=== PATIENT | female | born 1990 | race Caucasian/White ===

== ENCOUNTER → 2016-05-29 | Outpatient (CLI) | payer MEDICAID ==
--- NOTE | 2016-05-29 10:41 | RADRPT ---
PROCEDURE: US OB. CLINICAL INDICATION: Uncertain size and dates. TECHNIQUE: Multiple sonographic images of the uterus were obtained. The images were revi ewed on a PACS workstation. COMPARISON: No prior studies are available for comparison. FINDINGS: There is a single live intrauterine gestation. heart rate is 150 beats per minute. Measurements were made in order to determine age. The results are as follows: BPD = 5.98 cm. HC = 22.56 cm. AC = 21.35 cm. FL = 4.04 cm. Estimated weight is 719 +/- 108 grams. Menstrual age by ultrasound dates is 24 weeks 3 days. The estimated date of delivery is 09/15/2016. Maximum vertical pocket of amniotic fluid is 6.9 cm. Position is cephalic and placenta is anterior grade 1. There is no evidence for an abruption or plac enta previa. IMPRESSION: 1. Single live intrauterine gestation of 24 weeks 3 days menstrual age by ultrasound dates. 2. The estimated date of delivery is 09/15/2016. RPTAT: QQ .Domenic Montes MD, Date Time Electronically viewed and signed by .Domenic Montes MD, on 05/29/2016 10:40 .R/
== END | disposition home or self-care (01) ==
LOC: U/S 09:18
PROVIDERS: ATTEND Obstetrics & Gynecology
DX: O26.842 Uterine size-date discrepancy, second trimester (principal); Z3A.00 Weeks of gestation of pregnancy not specified
CPT/HCPCS: 76805

== ENCOUNTER 2016-08-09 11:16 | Outpatient (CLI) | payer MEDICAID ==
[~2016-08-09] VITALS: Ht 157.5 cm; Wt 76.9 kg
[2016-08-09 11:22] VITALS: Ht 157.5 cm; Wt 76.9 kg
--- NOTE | 2016-08-09 12:25 | RADRPT ---
PROCEDURE: US OB biophysical profile. CLINICAL INDICATION: decreased movements TECHNIQUE: Multiple sonographic images of the pelvis were obtained. The images were reviewed on a PACS workstation. COMPARISON: 05/29/2016 FINDINGS: There is a single viable intrauterine gestation. Cardiac activity is present with 150 beats per min [place]. There is a vertex presentation. The placenta is anterior. There is no evidence of placental abruption. There is a normal amount of amniotic fluid with an KASSANDRA = 15.5 cm. Biophysical profile: movement 2/2 tone 2/2. breathing 2/2 KASSANDRA 2/2 Total 12/08 RPTAT: AA . IMPRESSION: Normal biophysical profile. . .Duong Guthrie MD, MD Date Time Electronically viewed and signed by .Duong Guthrie MD, MD on 08/09/2016 12:24 .S/
--- NOTE | 2016-09-30 09:09 | QN ---
Documentation Comment Dx. iup 38 weeks MEHREEN Alejandre MD September 30, 2016 09:09
== END 2016-08-09 13:25 | disposition home or self-care (01) ==
LOC: OBT 11:16 → L-D 11:16 → OBT 13:25
PROVIDERS: ATTEND Obstetrics & Gynecology
DX: O36.8130 Decreased fetal movements, third trimester, not applicable or unspecified (principal); Z3A.38 38 weeks gestation of pregnancy
CPT/HCPCS: 76818; Z7500; G0463

== ENCOUNTER 2016-08-29 09:00 | Inpatient (IN) | payer MEDICAID ==
[~2016-08-29] VITALS: Ht 154.9 cm; Wt 77.3 kg
[2016-08-29] MEDS ORDERED: METHYLERGONOVINE 0.2 MG INJ IM PRN ×2 (10:00→15:30)
[2016-08-29] MEDS ORDERED: MISOPROSTOL 200 MCG TAB PR PRN ×2 (10:00→15:30)
[2016-08-29] MEDS ORDERED: OXYTOCIN 30 UNITS/LR 500 ML IV PRN ×2 (10:00→15:30)
[2016-08-29] MEDS ORDERED: CARBOPROST 250 MCG INJ IM PRN ×2 (10:00→15:30)
[2016-08-29] MEDS ORDERED: OXYTOCIN 30 UNITS/LR 500 ML IV SCH (10:00)
[2016-08-29 10:56] LABS: ADD SCAN DIFF NO
[2016-08-29 10:58] LABS: BASOPHILS % 0.2 % (0.0-2.0); EOSINOPHILS % 0.2 % (0.0-7.0); HEMATOCRIT 31.6 % (37.0-47.0); HEMOGLOBIN 10.7 g/dl (12.0-16.0); LYMPHOCYTES # 2.2 10^3/ul (0.8-2.9); MEAN CORPUSCULAR HGB CONC 33.9 g/dl (32.0-37.0); MEAN CORPUSCULAR VOLUME 85.6 fl (82.0-101.0); MEAN PLATELET VOLUME 11.5 fl (7.4-10.4); MONOCYTE # 0.6 10^3/ul (0.3-0.9); MONOCYTES % 6.8 % (0.0-11.0); NEUTROPHIL # 5.9 10^3/ul (1.6-7.5); NEUTROPHILS % 67.2 % (39.0-77.0); PLATELET COUNT 270 10^3/UL (140-415); RED BLOOD COUNT 3.69 10^6/ul (4.20-5.40); RED CELL DISTRIBUTION WIDTH 16.1 % (11.5-14.5); WHITE BLOOD COUNT 8.8 10^3/ul (4.8-10.8)
[2016-08-29] MEDS ORDERED: LACTATED RINGER'S 1,000 ML IV ONE ×2 (11:00→11:30)
[2016-08-29 11:23] LABS: INR 0.94; PROTIME 12.6 Sec (12.2-14.2)
[2016-08-29 11:24] LABS: PARTIAL THROMBOPLASTIN TIME 31.4 Sec (25.0-35.0)
[2016-08-29] MEDS ORDERED: FENTAnyl 50 MCG/ML VIAL ONE (11:32)
[2016-08-29] MEDS ORDERED: morphine SULFATE/PF (10 MG/10 ML) INJ ONE (11:32)
[2016-08-29 11:33] VITALS: Ht 154.9 cm; Wt 77.3 kg
[2016-08-29 11:34] VITALS: BP 121/73; PULSE 93; RESP 18
[2016-08-29] MEDS: CEFAZOLIN 2 GM/50 ML (PMX) 50 ML IV SCH ×2 (11:48→13:44)
[2016-08-29] MEDS ORDERED: PHENYLephrine (100 MCG/ML) 5ML SYG ONE (11:51)
[2016-08-29] MEDS ORDERED: DIPHENHYDRAMINE 50 MG INJ IV PRN (12:00)
[2016-08-29] MEDS ORDERED: ZOLPIDEM 5 MG TAB PO PRN (12:00)
[2016-08-29] MEDS ORDERED: HYDROmorphONE 1 MG/ML SYG IV PRN ×2 (12:00)
[2016-08-29] MEDS ORDERED: NALOXONE (0.4 MG/ML) INJ IV PRN (12:00)
[2016-08-29] MEDS ORDERED: ONDANSETRON 4 MG INJ IV PRN (12:00)
[2016-08-29] MEDS ORDERED: DEXAMETHASONE 4 MG/ML 1 ML INJ ONE (12:06)
--- NOTE | 2016-08-29 14:10 | HP ---
Date/Time of Note Date/Time of Note DATE: 08/29/16 TIME: 13:57 OB - History Hx of Present Free Text/Dictation 25 years old female T3 Pt/0 02 admitted to [facility] at 41 weeks and 1 with a history of previous request for lateral tubal ligation at the time of her section being prepared for the above-mentioned surgery This patient has been under the care of the [facility] and her was not complicated with gestational diabetes -induced hypertension or any other serious medical or surgical condition Past history appendectomy 2007, 2 previous section Allergies denies allergy to any known medication Social habit denies a smoking or drinking Family history unremarkable Review of systems within normal Physical examination 5 feet 1 178 pounds Head ears nose and throat negative Neck supple no thyromegaly Lungs clear to P&A Heart normal sinus rhythm no murmur Abdomen fundal height 37 cm from symphysis pubis to the height of the fundus heart rate category 1 Pelvic exam deferred Extremities no edema no varicosities Impression Intrauterine at 40 weeks and 1 day history of 3 previous section request for bilateral tubal ligation. Patient is aware of the complication of the surgery including bowel bladder injury infection hemorrhage and hematoma, also she was counseled regarding failure rate of tubal ligation increased risk of ectopic future failure to conceive. Estimated Due Date: Aug 21, 2016 : 6 Para: 3 Spontaneous : 2 Ultrasounds: Normal mid trimester US Obstetrical Complications: None Medical Complications: None Past Family/Social History * Past Medical, Surgical, Family and Obstetric Histories reviewed from chart. Rubella: immune RPR/VDRL: Negative GBS Status: Negative HBsAG: Negative OB Admission Exam Vital Signs Vital Signs Vital Signs Date Time Temp Pulse Resp B/P Pulse Ox O2 Delivery O2 Flow Rate FiO2 08/29/16 11:34 98.3 93 18 121/73 Room Air Physical Exam HEENT: WNL Heart: Rhythm Normal Lungs: Clear, Equal Abdomen: WNL Extremities: Normal Reflexes: Normal Cervical Dilatation: None Effacement: 0% Station: -2 Membranes: Intact Heart Rate: 130's Accelerations: Accelerations Present Decelerations: No Decelerations Varibility: Absent Last 72 hours Lab Results CBC & BMP 08/29/16 10:10 OB Assessment/Plan Reason for admission: other (Repeat bilateral tubal ligation) DEYA RAMOS MD Aug 29, 2016 14:08
--- NOTE | 2016-08-29 14:28 | OPR ---
DATE OF OPERATION: 08/29/2016 PREOPERATIVE DIAGNOSES: 1. Intrauterine at 41 weeks and 1 day gestation. 2. History of previous section. 3. Request for voluntary sterilization, bilateral tubal ligation at the time of section. POSTOPERATIVE DIAGNOSES: 1. Intrauterine at 41 weeks and 1 day gestation. 2. History of previous section. 3. Request for voluntary sterilization, bilateral tubal ligation at the time of section. PROCEDURE PERFORMED: 1. Repeat transverse low cervical section. 2. Bilateral tubal ligation, Tere method. SURGEON: Deya Barnard MD TURRET LATHE SET UP OPERATOR: Shena Monroe MD ANESTHESIA: Spinal. ANESTHESIOLOGIST: Dr. Jefferson FINDINGS: Live baby boy with 9 and 9. Baby weighed 3316 grams. DETAILS OF THE PROCEDURE: Under satisfactory spinal anesthesia, the patient was prepped and draped and placed in supine position, tilted to the left. Pfannenstiel incision was made. Old scar was re moved. Incision carried through the subcutaneous tissue. Bleeders brought under control with elect rocautery. Fascia incised to the length of the incision. Rectus muscles divided in midline, perito neum exposed. Upon entry into the abdominal cavity, there were some filmy adhesions between the jannette bertin and anterior abdominal wall, which were taken down by sharp and blunt dissection. Lower segment of the uterus, which was extremely thinned out to the thickness of 1 to 2 mm, cleared from the adhe sions. Bladder flap was developed. Transverse incision was made in the lower segment of the uterus . Amniotic sac ruptured. Clear amniotic fluid noted. Live baby boy was delivered from unengaged v ertex. Nasal oropharyngeal suction was performed. Baby handed to the team for immediate a ttention. The patient received 20 units of Pitocin. Placenta delivered manually intact. Uterine c avity cleaned with wet sponge and uterus closed in 2 layers using Monocryl #1 in continuous fashion. Bilateral tubal ligation performed by identifying the right fallopian tube. The ampullar section of the tube was grasped by a [place]. A loop was made. Suture material used #0 plain catgut was rein forced with the same suture material. Top of the loop 3/4-inch was excised. The cut end of the tub e was cauterized and the specimen submitted for the pathology. The same procedure performed for the opposite side. Peritoneal cavity irrigated with warm saline. Sponge, needle and instrument reported to be correct. Abdominal peritoneum closed with 2-0 chromic catgut continuously. Rectus muscle approximated with a few interrupted 2-0 chromic catgut. Fascia closed with #1 PDS in a continuous fashion. Subcutan eous tissue approximated with 2-0 chromic catgut. The skin closed with antonia. Estimated blood lo ss 600 mL. Urine bag contained 300 mL of clear urine. The patient tolerated procedure well, transf erred to recovery room in a good condition. Dictated By: DEYA MAGALLANES/NICHOLE Conf#: [id number] DID#: [id number]
[2016-08-29] MEDS: KETOROLAC 30 MG INJ IV PRN (14:41)
[2016-08-29] MEDS ORDERED: OXYCODONE/ACETAMINOPHEN (5/325) TAB PO PRN (15:30)
[2016-08-29] MEDS ORDERED: LANOLIN 7 GM TUBE TOP PRN (15:30)
[2016-08-29] MEDS ORDERED: ACETAMINOPHEN/CODEINE #3 TAB PO PRN ×2 (15:30)
[2016-08-29] MEDS ORDERED: CEFAZOLIN 1 GM/50 ML (PMX) 50 ML IVPB SCH (15:30)
[2016-08-29 16:30] VITALS: BP 125/68; PULSE 79; RESP 19
[2016-08-29] MEDS: OXYTOCIN 30 UNITS/LR 500 ML IV SCH ×2 (16:51→21:05)
[2016-08-29 17:01] VITALS: BP 131/81; PULSE 79; RESP 17
[2016-08-29 18:01] VITALS: BP 112/68; PULSE 75; RESP 18
[2016-08-29 19:45] VITALS: BP 115/66; PULSE 78; RESP 18
[2016-08-30] VITALS (7 sets, daily range): BP systolic 90–106; BP diastolic 52–63; PULSE 70–81; RESP 16–18
[2016-08-30] MEDS: OXYTOCIN 30 UNITS/LR 500 ML IV SCH ×5 (01:17→15:04)
[2016-08-30] MEDS ORDERED: LACTATED RINGER'S 1,000 ML IV ONE (05:30)
[2016-08-30] MEDS: KETOROLAC 30 MG INJ IV PRN ×2 (05:30→11:49)
[2016-08-30 07:38] LABS: ADD SCAN DIFF NO
[2016-08-30 07:39] LABS: BASOPHILS % 0.2 % (0.0-2.0); EOSINOPHILS % 0.1 % (0.0-7.0); HEMATOCRIT 28.3 % (37.0-47.0); HEMOGLOBIN 9.5 g/dl (12.0-16.0); LYMPHOCYTES # 2.2 10^3/ul (0.8-2.9); LYMPHOCYTES % 18.2 % (15.0-51.0); MEAN CORPUSCULAR HEMOGLOBIN 28.4 pg (29.0-33.0); MEAN CORPUSCULAR HGB CONC 33.6 g/dl (32.0-37.0); MEAN CORPUSCULAR VOLUME 84.7 fl (82.0-101.0); MEAN PLATELET VOLUME 11.8 fl (7.4-10.4); MONOCYTE # 0.9 10^3/ul (0.3-0.9); MONOCYTES % 6.9 % (0.0-11.0); NEUTROPHIL # 9.1 10^3/ul (1.6-7.5); PLATELET COUNT 263 10^3/UL (140-415); RED BLOOD COUNT 3.34 10^6/ul (4.20-5.40); RED CELL DISTRIBUTION WIDTH 15.8 % (11.5-14.5); WHITE BLOOD COUNT 12.3 10^3/ul (4.8-10.8)
[2016-08-30] MEDS: SENNA/DOCUSATE NA (8.6MG/50MG) TAB PO SCH ×2 (09:05→20:35)
[2016-08-30] MEDS: IBUPROFEN 600 MG TAB PO SCH ×3 (11:50→23:37)
[2016-08-30] MEDS: OXYCODONE/ACETAMINOPHEN (5/325) TAB PO PRN ×2 (14:22→20:35)
--- NOTE | 2016-08-30 15:29 | PN ---
Date/Time of Note Date/Time of Note DATE: 08/30/16 TIME: 15:28 OB Subjective Subjective Subjective Post day 1 Afebrile vital signs stable abdomen soft incision dry bowel sounds present lochia moderate extremity normal Laboratory Tests Test 08/30/16 06:21 White Blood Count 12.310^3/ul Red Blood Count 3.3410^6/ul Hemoglobin 9.5g/dl Hematocrit 28.3% Mean Corpuscular Volume 84.7fl Mean Corpuscular Hemoglobin 28.4pg Mean Corpuscular Hemoglobin Concent 33.6g/dl Red Cell Distribution Width 15.8% Platelet Count 34538^3/UL Mean Platelet Volume 11.8fl Neutrophils % 74.0% Lymphocytes % 18.2% Monocytes % 6.9% Eosinophils % 0.1% Basophils % 0.2% Nucleated Red Blood Cells % 0.0/100WBC Neutrophils # 9.110^3/ul Lymphocytes # 2.210^3/ul Monocytes # 0.910^3/ul Eosinophils # 0.010^3/ul Basophils # 0.010^3/ul Nucleated Red Blood Cells # 0.010^3/ul Current Medications Medications (Trade) Dose Ordered Sig/Genevieve Route PRN Reason Start Time Stop Time Status Last Admin Dose Admin Cefazolin Sodium/ Dextrose 50 ml @ 100 mls/hr ONCE IV 08/29/16 10:00 08/29/16 15:08 DC 08/29/16 11:48 Oxytocin/Lactated Ringer's 500 ml @ 125 mls/hr ONCE IV 08/29/16 10:00 08/29/16 15:08 DC Oxytocin/Lactated Ringer's 500 ml @ 0 mls/hr ONCE PRN IV For Hemorrhage Management 08/29/16 10:00 08/29/16 15:08 DC Methylergonovine Maleate (Methergine) 0.2 mg ONCE PRN IM VAGINAL BLEEDING 08/29/16 10:00 08/29/16 15:09 DC Carboprost Tromethamine (Hemabate) 250 mcg ONCE PRN IM VAGINAL BLEEDING 08/29/16 10:00 08/29/16 15:09 DC Misoprostol 1000 mcg 1,000 mcg ONCE PRN NM VAGINAL BLEEDING 08/29/16 10:00 08/29/16 15:09 DC Lactated Ringer's 1,000 ml @ 1,000 mls/hr Q1H ONCE IV 08/29/16 11:00 08/29/16 11:59 DC 08/29/16 10:51 Lactated Ringer's (Lr) 1,000 ml @ 1,000 mls/hr Q1H ONCE IV 08/29/16 11:30 08/29/16 12:29 DC 08/29/16 12:00 Morphine Sulfate (Duramorph) 10 mg STK-MED ONCE .ROUTE 08/29/16 11:32 08/29/16 11:33 DC Fentanyl (Sublimaze) 100 mcg STK-MED ONCE .ROUTE 08/29/16 11:32 08/29/16 11:33 DC Naloxone HCl (Narcan) 0.1 mg Q2M PRN IV FOR RESP RATE 8 OR LESS 08/29/16 12:00 08/29/16 15:09 DC Ketorolac Tromethamine (Toradol) 30 mg Q6H PRN IV PAIN 08/29/16 12:00 08/30/16 11:59 DC 08/30/16 11:49 Hydromorphone HCl (Dilaudid) 0.2 mg Q3H PRN IV PAIN LEVEL 1-5 08/29/16 12:00 08/30/16 11:59 DC Hydromorphone HCl (Dilaudid) 0.4 mg Q3H PRN IV PAIN LEVEL 6-10 08/29/16 12:00 08/30/16 11:59 DC Diphenhydramine HCl (Benadryl) 25 mg Q6H PRN IV ITCHING 08/29/16 12:00 08/30/16 11:59 DC Ondansetron HCl (Zofran Inj) 4 mg Q6H PRN IV NAUSEA AND/OR VOMITING 08/29/16 12:00 08/30/16 11:59 DC Zolpidem Tartrate (Ambien) 5 mg HS MAY REPEAT X 1 PRN PO INSOMNIA 08/29/16 12:00 08/30/16 11:59 DC Miscellaneous Information (* Miscellaneous Pharmacy Order) Duramorph: .2 mg Spi... GIVEN XX 08/29/16 12:00 08/29/16 15:09 DC Phenylephrine HCl (Avtar-Synephrine Inj Syg) 500 mcg STK-MED ONCE .ROUTE 08/29/16 11:51 08/29/16 11:52 DC Dexamethasone (Decadron) 4 mg STK-MED ONCE .ROUTE 08/29/16 12:06 08/29/16 12:07 DC Acetaminophen/ Codeine Phosphate (Tylenol No.3) 1 tab Q4H PRN PO PAIN LEVEL 4-6 08/29/16 15:30 Acetaminophen/ Codeine Phosphate (Tylenol No.3) 2 tab Q4H PRN PO PAIN LEVEL 7-10 08/29/16 15:30 Oxycodone/ Acetaminophen (Percocet (5/ 325)) 1 tab Q4H PRN PO PAIN LEVEL 4-6 08/29/16 15:30 08/30/16 14:22 Oxycodone/ Acetaminophen (Percocet (5/ 325)) 2 tab Q4H PRN PO PAIN LEVEL 7-10 08/29/16 15:30 Ibuprofen (Motrin) 600 mg Q6 PO 08/30/16 12:00 Simethicone (Mylicon) 160 mg Q8H PRN PO DISTENSION/GAS/BLOATING 08/29/16 15:30 Senna/Docusate Sodium (Senokot-S) 1 tab BID PO 08/30/16 09:00 08/30/16 09:05 Lanolin (Fyr-R-Kqpyjl) 1 applic BEDSIDE MEDICATION PRN TOP BEDSIDE FOR ARIELLE TO NIPPLES 08/29/16 15:30 Diphtheria/ Tetanus/Acell Pertussis 0.5 ml 0.5 ml ONCE ONCE IM* 09/01/16 09:00 09/01/16 09:01 Oxytocin/Lactated Ringer's 500 ml @ 0 mls/hr ONCE PRN IV For Hemorrhage Management 08/29/16 15:30 Methylergonovine Maleate (Methergine) 0.2 mg ONCE PRN IM VAGINAL BLEEDING 08/29/16 15:30 Carboprost Tromethamine (Hemabate) 250 mcg ONCE PRN IM VAGINAL BLEEDING 08/29/16 15:30 Misoprostol 1000 mcg 1,000 mcg ONCE PRN NM VAGINAL BLEEDING 08/29/16 15:30 Cefazolin Sodium 50 ml @ 100 mls/hr ONCE IVPB 08/29/16 15:30 08/29/16 15:59 DC 08/29/16 16:50 Oxytocin/Lactated Ringer's 500 ml @ 125 mls/hr Q4H IV 08/29/16 15:04 08/30/16 01:17 Lactated Ringer's (Lr) 1,000 ml @ 1,000 mls/hr Q1H ONCE IV 08/30/16 05:30 08/30/16 06:29 DC 08/30/16 05:30 DEYA RAMOS MD Aug 30, 2016 15:29
[2016-08-31 04:00] VITALS: BP 90/82; PULSE 71; RESP 16
[2016-08-31] MEDS: OXYCODONE/ACETAMINOPHEN (5/325) TAB PO PRN ×2 (04:18→16:23)
[2016-08-31] MEDS: IBUPROFEN 600 MG TAB PO SCH ×4 (05:41→23:58)
[2016-08-31 07:51] VITALS: BP 101/58; PULSE 81; RESP 18
[2016-08-31] MEDS: SENNA/DOCUSATE NA (8.6MG/50MG) TAB PO SCH ×2 (08:08→20:35)
--- NOTE | 2016-08-31 09:45 | PN ---
Date/Time of Note Date/Time of Note DATE: 08/31/16 TIME: 09:44 OB Subjective Subjective Subjective Post day 1 Afebrile vital signs are stable abdomen soft incision dry bowel sounds. Extremity normal lochia moderate ambulation recommended diet advanced as tolerated DEYA RAMOS MD August 31, 2016 09:45
[2016-08-31 16:00] VITALS: BP 119/65; PULSE 97; RESP 18
[2016-08-31 20:15] VITALS: BP 112/63; PULSE 83; RESP 17
[2016-09-01] VITALS: BP 107/58; PULSE 77; RESP 18
[2016-09-01] MEDS: OXYCODONE/ACETAMINOPHEN (5/325) TAB PO PRN (03:10)
[2016-09-01 03:30] VITALS: BP 99/54; PULSE 75; RESP 18
[2016-09-01] MEDS: IBUPROFEN 600 MG TAB PO SCH ×2 (05:31→11:55)
[2016-09-01 08:30] VITALS: BP 103/63; PULSE 88; RESP 16
[2016-09-01] MEDS ORDERED: DIPHTH/TET/ACEL PERTUSS (ADULT) 0.5 ML VIAL IM* ONE (09:00)
[2016-09-01] MEDS: SENNA/DOCUSATE NA (8.6MG/50MG) TAB PO SCH (09:37)
--- NOTE | 2016-09-01 10:06 | PD.PPDC ---
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
--- NOTE | 2016-09-01 10:10 | DS ---
Date/Time of Note Date/Time of Note DATE: 09/01/16 TIME: 10:08 Discharge Summary Admission/Discharge Info Admit Date/Time Aug 29, 2016 at 09:39 Discharge Date/Time September 01, 2016 at 10 AM Final Diagnosis bilateral tubal ligation Patient Condition: Good Procedures Repeat bilateral tubal ligation Hx of Present Illness 40 weeks 1 day history of previous request for tubal ligation Hospital Course Uneventful satisfactory recovery Home Meds No Active Prescriptions or Reported Meds Follow-up Plan Appointment clinic in 4 days for post follow-up and removal of antonia DEYA RAMOS MD September 01, 2016 10:10
[2016-09-01] MEDS ORDERED: NA PHOSPHATE/BIPHOS 133 ML ENEMA PR ONE (10:30)
== END 2016-09-01 13:58 | disposition home or self-care (01) | DRG 766 ==
LOC: L-D 09:39 → PP1 15:44
PROVIDERS: ADMIT Obstetrics & Gynecology; ATTEND Obstetrics & Gynecology
PROC: 0UL70ZZ Occlusion of Bilateral Fallopian Tubes, Open Approach (ICD-10-PCS; 2016-08-29)
PROC: 10D00Z1 Extraction of Products of Conception, Low, Open Approach (ICD-10-PCS; principal; 2016-08-29 09:00)
DX: O34.211 Maternal care for low transverse scar from previous cesarean delivery (principal); O48.0 Post-term pregnancy; Z3A.41 41 weeks gestation of pregnancy; Z30.2 Encounter for sterilization; Z37.0 Single live birth
CPT/HCPCS: 85025; 85610; 85730; 86592; 86850; 86900; 86901; 88302; 90715; 94760; J0690; J1100; J1885; J2274; J2370; J2405; J2590; J3010; J7120